=== PATIENT | female | born 1950 | race Caucasian/White ===

== ENCOUNTER 2019-01-13 21:10 | Emergency (ER) | payer MEDICARE, OTHER ==
[2019-01-13 21:27] VITALS: BP 151/93; PULSE 86
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
== END 2019-01-13 22:47 | disposition home or self-care (01) ==
LOC: LB.ED 21:10
DX: S13.4XXA Sprain of ligaments of cervical spine, initial encounter (principal); M47.812 Spondylosis without myelopathy or radiculopathy, cervical region; Z79.899 Other long term (current) drug therapy; V87.7XXA Person injured in collision between other specified motor vehicles (traffic), initial encounter
CPT/HCPCS: 72040; 99283-25